=== PATIENT | male | born 1970 | race African-American/Black ===

== ENCOUNTER 2020-06-25 02:32 | Emergency (ER) | payer SELFPAY ==
[~2020-06-25] VITALS: Ht 175.3 cm; Wt 78.5 kg
--- NOTE | 2020-06-25 02:43 | NUR ---
admitted to [facility] ambulatory c/o face pain. dr huddleston will see & evaluate pt.
[2020-06-25] MEDS ORDERED: FAMOTIDINE. 20 MG/2 ML VIAL IV ONE ×2 (02:45→02:59)
[2020-06-25] MEDS ORDERED: methylPREDNISolone SOD SUCC 125 MG/2 ML VIAL IV ONE (02:45)
--- NOTE | 2020-06-25 02:49 | NUR ---
ice compress applied to face & both eyes.
[2020-06-25] MEDS ORDERED: methylPREDNISolone SOD SUCC 125 MG/2 ML VIAL ONE (03:02)
[2020-06-25 03:43] VITALS: BP 130/75
== END 2020-06-25 03:45 | disposition home or self-care (01) ==
LOC: ER 02:35
DX: T78.3XXA Angioneurotic edema, initial encounter (principal); L23.4 Allergic contact dermatitis due to dyes; R03.0 Elevated blood-pressure reading, without diagnosis of hypertension
CPT/HCPCS: 96374; 96375; 99284; J2930; J3490; A4663